=== PATIENT | male | born 1985 | race Caucasian/White ===

== ENCOUNTER 2017-03-11 15:09 | Emergency (ER) | payer OTHER ==
[~2017-03-11] VITALS: Ht 185.4 cm; Wt 70.3 kg
[2017-03-11 15:18] VITALS: BP 149/97
--- NOTE | 2017-03-11 15:26 | PHYS DOC ---
Past Medical History Past Medical History: No Pertinent History Past Surgical History: No Surgical History Smoking: Cigarettes Adult General Chief Complaint Chief Complaint: FINGER INJURY HPI HPI Patient is a 31 year old male presents to the emergency department stating that he smashed his finger between a private bar and a tire. He states that this happened while he was at work patient states that he smashed his right fifth finger. He states that the finger is numb and does not feel the tip of it and is unable to bend it. He originally thought his immunizations were up to date however upon me questioning him he does not know. Review of Systems Review of Systems Constitutional: Denies fever or chills [] Eyes: Denies change in visual acuity, redness, or eye pain [] HENT: Denies nasal congestion or sore throat [] Respiratory: Denies cough or shortness of breath [] Cardiovascular: No additional information not addressed in HPI [] GI: Denies abdominal pain, nausea, vomiting, bloody stools or diarrhea [] : Denies dysuria or hematuria [] Musculoskeletal: Denies back pain or joint pain [] Integument: Denies rash or skin lesions laceration to the right fifth finger. Neurologic: Denies headache, focal weakness or sensory changes [] Endocrine: Denies polyuria or polydipsia [] Current Medications Current Medications Current Medications Medications (Trade) Dose Ordered Sig/Dylan Start Time Stop Time Status Last Admin Dose Admin Diphtheria/ Tetanus/Acell Pertussis (Boostrix) 0.5 ml ONCE ONCE 03/11/17 15:45 03/11/17 15:46 DC 03/11/17 16:00 0.5 ML Lidocaine/Sodium Bicarbonate (Buffered Lidocaine 1%) 20 ml 1X ONCE 03/11/17 15:45 03/11/17 15:46 DC 03/11/17 15:47 20 ML Allergies Allergies Allergies Coded Allergies Type Severity Reaction Last Updated Verified No Known Drug Allergies 03/11/17 No Physical Exam Physical Exam Constitutional: Well developed, well nourished, no acute distress, non-toxic appearance. [] HENT: Normocephalic, atraumatic, bilateral external ears normal, oropharynx moist, no oral exudates, nose normal. [] Eyes: PERRLA, EOMI, conjunctiva normal, no discharge. [] Neck: Normal range of motion, no tenderness, supple, no stridor. [] Cardiovascular:Heart rate regular rhythm, no murmur [] Lungs & Thorax: Bilateral breath sounds clear to auscultation [] Skin: Warm, dry, no erythema, no rash. Laceration right fifth finger. Back: No tenderness Extremities: Right 5th finger tenderness, no cyanosis, no clubbing, ROM intact, no edema. [] Neurologic: Alert and oriented X 3, normal motor function, normal sensory function, no focal deficits noted. [] Psychologic: Affect normal, judgement normal, mood normal. [] Current Patient Data Vital Signs Vital Signs Date Time Temp Pulse Resp B/P (MAP) Pulse Ox O2 Delivery O2 Flow Rate FiO2 03/11/17 15:18 97.4 65 20 100 Room Air 97.4 EKG EKG [] Radiology/Procedures Radiology/Procedures [] Course & Med Decision Making Course & Med Decision Making Pertinent Labs and Imaging studies reviewed. (See chart for details) Patient was noted to have a comminuted tuft fracture on the right fifth finger. appears to be an open fracture. Patient's nail appears to be pulled up from the nailbed. It was reinserted after soaking the finger in Betadine and saline for approximately 20 minutes. Site was then cleaned with Betadine. Patient also had a laceration noted around the nail with 3 interrupted sutures placed of 4- 0 nylon. Patient will be placed on Augmentin at discharge patient will also be provided with hydrocodone for severe pain. He was encouraged to use ibuprofen during the day when he is working. Ice packs elevation as much as possible. Patient was provided with signs and symptoms of infection such as redness, warmth, tenderness or any yellow/greenish drainage of a come from the site if this should occur he is to follow-up the primary care physician immediately. Patient will be provided with orthopedic name and number to follow up with. Patient agrees with discharge instructions, treatment regimens and follow-up recommendations. [] Dragon Disclaimer Dragon Disclaimer This electronic medical record was generated, in whole or in part, using a voice recognition dictation system. Departure Departure Impression: Primary Impression: Open fracture of tuft of distal phalanx of thumb Disposition: 01 HOME, SELF-CARE Condition: STABLE Referrals: MCKENNA ZHU MD Patient Instructions: Finger Fracture, [id number], Laceration Care, Adult, [id number] Additional Instructions: Keep the area clean and dry. Clean the site twice day with soap and water and apply antibiotic ointment to the area. Watch for signs and symptoms of infection: Redness, warmth, tenderness or any yellow/greenish drainage of a come from the site physician occur follow-up to primary care physician immediately. Antibiotics as prescribed. Pain medication as prescribed. This medication will cause drowsiness do not take any be alert and oriented. You may also use ibuprofen for pain and discomfort. Ice packs on 20 minutes off 20 minutes several times a day. Elevation as much as possible. Follow-up with orthopedic in the next week. Sutures out in the next 7-10 days. Return back to emergency prior signs symptoms of become worse. Scripts Hydrocodone/Apap 5-325 (NORCO 5-325 TABLET) 1 Each Tablet 1 TAB PO PRN Q6HRS Y for PAIN, #20 TAB 0 Refills Prov: EMANUEL NAJERA APRN 03/11/17 Amoxicillin/Potassium Clav (AUGMENTIN 875-125 TABLET) 1 Each Tablet 1 TAB PO BID, #20 TAB Prov: EMANUEL NAJERA APRN 03/11/17 EMANUEL NAJERA APRN Mar 11, 2017 15:26
[2017-03-11] MEDS ORDERED: DIPHTH,PERTUSS(ACELL),TET TOX 0.5 ML DISP.SYRIN. VAX IM ONE (15:45)
[2017-03-11] MEDS ORDERED: LIDOCAINE 1% / SOD BICARB 8.4% 20 ML VIAL. IJ ONE (15:45)
--- NOTE | 2017-03-11 15:46 | RAD ---
Indication: Injury to the fifth finger on the right. Time of exam 1537 hours. 3 views of the right fifth finger were obtained. There is a comminuted fracture involving the tuft of the fifth finger. There is soft tissue swelling. No significant displacement or angulation is seen. No radiopaque soft tissue foreign body is seen. Impression: Comminuted tuft fracture of the right fifth finger.
[2017-03-11] MEDS ORDERED: HYDR-971 PO (16:34)
[2017-03-11] MEDS ORDERED: AMOX1TAB61 PO (16:34)
== END 2017-03-11 16:50 | disposition home or self-care (01) ==
LOC: ER 15:09
DX: S62.636B Displaced fracture of distal phalanx of right little finger, initial encounter for open fracture (principal); S61.011A Laceration without foreign body of right thumb without damage to nail, initial encounter; W23.0XXA Caught, crushed, jammed, or pinched between moving objects, initial encounter; Y93.89 Activity, other specified; Y92.89 Other specified places as the place of occurrence of the external cause; Y99.8 Other external cause status
CPT/HCPCS: 12001; 73140; 90471; 90715; 99284-25